=== PATIENT | female | born 1980 | race Two or more races ===

== ENCOUNTER 2019-03-09 15:00 | Outpatient (CLI) | payer OTHER | END 2019-03-09 15:01 | disposition critical access hospital (66) | LOC: EMS 15:00 | PROVIDERS: ATTEND Surgery | DX: M54.9 Dorsalgia, unspecified (principal); V49.50XA Passenger injured in collision with unspecified motor vehicles in traffic accident, initial encounter; Y92.413 State road as the place of occurrence of the external cause | CPT/HCPCS: A0425; A0429 ==

== ENCOUNTER 2019-03-09 15:43 | Emergency (ER) | payer OTHER ==
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
[2019-03-09 16:45] VITALS: BP 120/94
== END 2019-03-09 16:44 | disposition home or self-care (01) ==
LOC: EDBD → ED 15:43
DX: M54.2 Cervicalgia (principal); V43.62XA Car passenger injured in collision with other type car in traffic accident, initial encounter; Y92.410 Unspecified street and highway as the place of occurrence of the external cause
CPT/HCPCS: 99282; 99283